=== PATIENT | male | born 1990 | race Caucasian/White ===

== ENCOUNTER 2024-11-10 12:03 | Emergency (ER) | payer OTHER, SELFPAY ==
[2024-11-10 12:11] VITALS: BP 115/80; PULSE 73; O2SAT 96
--- NOTE | 2024-11-10 12:11 | CT_ITS ---
FINAL REPORT TECHNIQUE: Axial images were obtained of the cervical spine by computed tomography. Coronal and sagittal reconstruction process performed. This study was performed with techniques to keep radiation doses as low as reasonably achievable (ALARA). Individualized dose reduction techniques using automated exposure control or adjustment of mA and/or kV according to the patient's size were employed. CLINICAL HISTORY: midline lower C spine pain and bilateral hand ting COMPARISON: None FINDINGS: CT CERVICAL SPINE: Cervical vertebrae show normal height. No acute bony abnormality is identified. There is mild disc space narrowing at the C4-5, C5-6, and C6-7 levels. Posterior osteophytes are noted at the C4-5 and C5-6 levels. There is moderate bilateral neural foraminal narrowing at the C4-5 level, with moderate to severe right C5-6 neuroforaminal narrowing. These findings are greater than would be expected for the patient's chronologic age. There is no malalignment. The facets are properly aligned. IMPRESSION: Degenerative change as described above, with severe right C5-6 neural foraminal narrowing. No acute bony abnormality is identified. Reviewed, Interpreted and Dictated by Panfilo Perez MD Transcribed by Annie Hunter Authenticated and [facility]
[2024-11-10 12:14] VITALS: BP 115/80; PULSE 68; RESP 14; TEMP 36.5; O2SAT 99; BMI 30.1
[2024-11-10 12:16] VITALS: BP 102/74; PULSE 68; O2SAT 99
--- NOTE | 2024-11-10 12:16 | ED_ITS ---
Discharge Plan Disposition Patient Disposition: Home, Self-Care Prescriptions Prescriptions: No Action No Known Home Medications Referrals Follow up/Referrals: Provider,Referral, MD [Primary Care Provider, Medical] - See instructions Clinical Impressions Clinical Impression: Neck pain, Hand tingling Stand Alone Forms Stand Alone Forms: Work/School Release Instructions Patient Instructions: DI for Neck Pain Print Language Print Language: Greenlandic Discharge ED Provider: Aleksandar Tracey General Adult HPI General Chief complaint: Neck Pain/Injury Stated complaint: neck pain, numbness in both hands Time Seen by Provider: 11/10/24 12:06 History of Present Illness HPI narrative: Please note that above description of symptoms, in this electronic medical record under categorization of recalled from ER triage doctor by RN are reflective of an initial nursing assessment, however, is not reflective of my full history and physical exam that was personally taken and clarified. Consequentially, this preceding description of symptoms, which may include the patient's categorized chief complaint in the EMR, do not reflect my personal clinical impression, and the ultimate description of history of present illness and patient stated complaints should be deferred to this section of the note. Unless stated otherwise or congruent with this section of the note, additional signs, symptoms, or incongruence should be interpreted as inaccurate with my clinical impression. Related Data Home Medications ?Medication ?Instructions ?Recorded ?Confirmed No Known Home Medications 01/14/19 08/0 07/04 Allergies Allergy/AdvReac Type Severity Reaction Status Date / Time From TOMATOES (FOOD/DRUG) Allergy Unknown BREAK OUT Uncoded 06/03/17 15:21 IN COLD SORES IN MOUTH [facility] Disclaimer: The information contained in this section may have been updated after the patient was seen, as this information can be updated by other users. Social History Smoking Status: Current every day smoker tobacco type: cigarettes packs per day: 1 alcohol intake: current alcohol intake frequency: 0-2 drinks per day substance use type: former substance user, crack/cocaine and methamphetamine current occupational status: other Travel in the last 8 weeks?: None current occupation: refuses to answer Other Medical History Have you received the Flu Vaccine for this season: No Have you received the Pneumonia Vaccine: No ROS Obtained: Yes All systems reviewed & no additional complaints except as documented Physical Exam General General appearance: alert Head Head exam: atraumatic and normocephalic Eye Eye exam: Present normal appearance, PERRL and EOMI Neck Neck exam: Present normal inspection, full ROM, trachea midline and tenderness (midline tenderness lower C spine) Respiratory Respiratory exam: Absent respiratory distress, wheezes, stridor, accessory muscle use or prolonged expiratory phase Cardiovascular Cardiovascular exam: Present other (Pulses equal symmetric in upper and lower extremities) Abdominal Exam Abdominal exam: Present soft; Absent distention, tenderness or pulsatile mass Extremities Exam Extremities exam: Absent edema Neurological Exam Neurological exam: Present alert, oriented X3 and CN II-XII intact; Absent motor sensory deficit Skin Skin exam: Present warm and dry; Absent diaphoresis or erythema Medical Decision Making Medical Records Medical records reviewed: Yes I reviewed the patient's medical records. Screening: Per USPSTF and CDC recommendations, given the prevalence of disease in our region, it is our hospital?s policy to screen for HIV and viral Hepatitis for all patients aged 18 and over and those with ongoing risk factors. Shaun Inquiry Pt receiving controlled substance: No Shaun was queried for this patient: No Vital Signs: 11/10/24 12:11 11/10/24 12:14 11/10/24 12:16 Temperature 97.7 F Temperature Source Oral Pulse Rate 73 68 Pulse Rate [Right Radial] 68 Respiratory Rate 14 Blood Pressure 115/80 102/74 L Blood Pressure [Right Arm] 115/80 Blood Pressure Mean [Right Arm] 91 Blood Pressure Source Blood Pressure Source [Right Arm] Automatic Cuff Blood Pressure Position 02 Sat by Pulse Oximetry 96 99 99 Oxygen Delivery Method Room Air Room Air Room Air 11/10/24 13:49 Temperature 98.0 F Temperature Source Oral Pulse Rate 61 Pulse Rate [Right Radial] Respiratory Rate 18 Blood Pressure 113/80 Blood Pressure [Right Arm] Blood Pressure Mean [Right Arm] Blood Pressure Source Automatic Cuff Blood Pressure Source [Right Arm] Blood Pressure Position Sitting 02 Sat by Pulse Oximetry Oxygen Delivery Method Room Air Orders (Tests/Meds): ORDERS Category Date Time Status CT cervical spine wo con Stat Cat Scan 11/10/24 12:11 Completed Medical Decision Narrative: 34 M with no relevant medical history presenting with numbness in both hands. It's intermittent, not currently present. Associated with decreased aquatics specialist strength intermittently, but no respiratory issues, lower extremity issues, bowel or bladder dysfunction, or other complaints. No history of neck injury in the past. History was obtained via conversation with patient. On arrival, patient hemodynamically stable, alert, [oriented x4, ][appropriate, ]GCS [15], moving all extremities spontaneously, pupils equal and reactive to light. Full physical exam performed and significant for neuro intact, well-appearing male. No midline spinal tenderness. unremarkable exam overall. Differential includes carpal tunnel, radiculopathy, myelopathy, less likely central cord syndrome, central compression, among others. Patient placed on continuous cardiac monitoring and continuous pulse ox with initial blood pressure 115/80, heart rate 73, saturation 96% ORA. Because asymptomatic, no treatments were initiated in the ED. CT of the cervical spine ordered. On independent interpretation, no central pathology identified. On reevaluation, patient resting comfortably and still asymptomatic. Given patient presentation, workup, history, this most likely represents rdiculopathy vs myelopathy. recommended he follow up with PCP, information provided. I discussed my clinical impression with patient and answered all questions. At this time, the evidence for any other entities in the differential is insufficient to warrant any further testing or ED observation. This was explained to the patient. The patient was advised that persistent or worsening symptoms require further evaluation. I confirmed the patient's understanding of this discussion. Snowboard Instructor disclaimer Much of this encounter note is an electronic leak operator paraffin plant spoken language to printed text. Electronic leak operator paraffin plant of the spoken language may permit errors. Although I have reviewed the note, some errors may still exist. Critical Care Critical Care Time Critical Care Time: No
--- NOTE | 2024-11-10 12:25 | PC.NURSE ---
pt gone to ct via wheelchair
[2024-11-10 13:49] VITALS: BP 113/80; PULSE 61; RESP 18; TEMP 36.7; O2SAT 99
== END 2024-11-10 13:56 | disposition home or self-care (01) ==
PROVIDERS: Emergency Provider Emergency Medicine
DX: M54.2 Cervicalgia (principal); R20.2 Paresthesia of skin; F17.210 Nicotine dependence, cigarettes, uncomplicated
CPT/HCPCS: 72125; 99284

== ENCOUNTER 2024-11-23 09:25 | Outpatient (CLI) | payer OTHER, SELFPAY ==
[2024-11-23 14:14] LABS: Basophils # 0.1 K/mm3 (0-0.2); Basophils % 0.8 % (0.1-2.0); Eosinophils # 0.4 Kmm3 (0.0-0.4); Eosinophils % 4.1 % (0.1-12.0); Hematocrit 47.8 % (42.0-52.0); Hemoglobin 15.7 g/dL (14.1-18.0); Immature Granulocytes # 0.01 10^3uL; Immature Granulocytes % 0.1 %; Lymphocytes # 2.4 K/mm3 (0.7-4.5); Lymphocytes % 27.7 % (10-50); Mean Corpuscular HGB Conc 32.8 g/dL (31.8-35.4); Mean Corpuscular Hemoglobin 30.6 pg (27.0-31.2); Mean Corpuscular Volume 93.2 fl (80-94); Mean Platelet Volume 12.4 fl (7.4-10.4); Monocytes # 0.7 K/mm3 (0.1-1.0); Neutrophils # 5.1 K/mm3 (1.8-7.8); Neutrophils % 59.3 % (37.0-80.0); Nucleated Red Blood Cells # 0 10^3/uL; Nucleated Red Blood Cells % 0 %; Platelet Count 214 K/mm3 (142-424); Red Blood Count 5.13 M/mm3 (4.60-6.20); Red Cell Distribution Width 13.5 % (11.5-17.5); Red Cell Distribution Width-SD 46.5 fL; White Blood Count 8.6 K/mm3 (4.8-10.8)
[2024-11-23 14:37] LABS: Albumin Level 4.4 g/dl (3.5-5.0); Chloride 102 mmol/L (98-107); Potassium 4.6 mmoL/L (3.5-5.1); Sodium 139 mmol/L (136-145)
[2024-11-23 14:40] LABS: Alanine Aminotransferase 27 U/L (12-78); Albumin/Globulin Ratio 1.5 (1.1-1.8); Alkaline Phosphatase 76 U/L (38-126); Anion Gap 11.6 mEq/L (5-15); Aspartate Amino Transferase 30 U/L (17-59); Bilirubin,Total 0.5 mg/dl (0.2-1.3); Blood Urea Nitrogen 11 mg/dl (9-20); Calcium 9.2 mg/dl (8.4-10.2); Carbon Dioxide 30 mmol/L (22.0-30.0); Estimated Glomerular Filt Rate 111 ml/min (>60); GFR (African American) 134 ML/MIN (>60); Globulin 2.9 g/dL (1.3-3.2); Glucose 99 mg/dl (74-100); Total Protein,Serum 7.3 g/dl (6.3-8.2)
[2024-11-23 15:16] LABS: HIV Combo NEGATIVE (Negative)
[2024-11-23 15:24] LABS: Hepatitis C Ab Qual. W/ RFX REACTIVE (Negative)
[2024-11-23 18:27] LABS: Hemoglobin A1C 5.5 % (4.0-6.0)
--- OUTSIDE RECORDS SUMMARY | 2024-11-24 11:18 | XMS_ITS | Clinical Summary ---
Author Organization [facility] Address [address] [address] Phone Care Team Providers Care Underwriting Sales Representative Name Role Phone Eduadra Lopez APRN Primary Care Physician + Conditions or Problems Problem Name Problem Code Onset Date Status Entry Date Provider Comment Standard Description Annotate Eye irritation 211807751 (SNOMED CT) 07/26 Active 07/26 Elda Caro APRN Eye symptom Body mass index (BMI) 27.0-27.9; adult Z68.27 (ICD-10-CM ) 03/03 Active 03/03 Elda Heshamdelli SENIOR BUYER PLANNER Body mass index [BMI] 27.0-27.9, adult Body mass index (BMI) 24.0-24.9; adult Z68.24 (ICD-10-CM ) 01/19 Correction 01/19 Elda Zaadinadelli SENIOR BUYER PLANNER Body mass index [BMI] 24.0-24.9, adult Infected wound 47557863 (SNOMED CT) 03/03 Inactive 03/03 Elda Zanardelli SENIOR BUYER PLANNER Local infection of wound Athletes foot 7209612 (SNOMED CT) 03/03 Inactive 03/03 Elda Zanardelli SENIOR BUYER PLANNER Tinea pedis Body mass index (BMI) 24.0-24.9; adult Z68.24 (ICD-10-CM ) 01/19 Removed 01/19 Eduarda Lopez APRN Body mass index [BMI] 24.0-24.9, adult Hepatitis C 67694690 (SNOMED CT) 01/19 Active 01/19 Eduarda Lopez APRN Viral hepatitis C Methampheta mine abuse 932753054 (SNOMED CT) 01/19 Active 01/19 Eduarda Lopez APRN Harmful pattern of use of methamphetamin e Tobacco User 516571480 (SNOMED CT) 01/19 Active 01/19 Eduarda Lopez APRN Tobacco user Medications Medication Instructions Start Date Stop Date Generic Name NDC Provider DEXAMETHASONE SODIUM PHOSPHATE 0.1 % SOLN Instill 1 drop into right eye three times a day for eye pain dexamethasone sodium phosphate 70765448081 Elda Heshamdelli SENIOR BUYER PLANNER AMOXICILLIN 500 MG TABS Take 1 tablet by mouth three times a day for 7 days amoxicillin 34397982592 Ayad Nguyễn DMD AMOXICILLIN 500 MG TABS Take 1 tablet by mouth three times a day amoxicillin 20632413427 Ayad Nguyễn DMD LOTRIMIN AF 2 % AERO Use as per directions on bottle miconazole nitrate 98166807143 Elda Dahldelli SENIOR BUYER PLANNER BACITRACIN 500 UNIT/GM OINT 1 a small amount to affected area twice a day bacitracin 59642228185 Elda Mendietanardelli SENIOR BUYER PLANNER CEPHALEXIN 250 MG CAPS Take 1 capsule by mouth twice a day cephalexin 77284098865 Elda Mendietanardelli SENIOR BUYER PLANNER AMOXICILLIN 500 MG TABS Take 1 tablet by mouth three times a day for 7 days amoxicillin 52392379990 Ayad Nguyễn DMD Medications Administered No information available. Allergies, Adverse Reactions, Alerts Observed no known allergies at Results No information available. Plan of Care Type Date Detail Referral Ophthamology Opt ometry Referral General Patient education Patient Educat ion Given Procedures Code Procedure Name Date Entry Date CPT-3074F Most recent systolic blood pressure <130 mm Hg CPT-3078F Most recent diastoli c blood pressure <80 mm Hg CPT-1159F Medication list docu mented in medical record [id number] Medication Reconciliation [id number] Current every day smoker 20 10/08/09 4004F Patient screened for tobacco use and received tobacco cessation intervention [id number] Smoking cessation education [id number] Giving encouragement to exercise CPT-3074F Most recent systolic blood pressure <130 mm Hg CPT-3078F Most recent diastoli c blood pressure <80 mm Hg [id number] Medication Reconciliation [id number] Medication Reconciliation 4004F Patient screened for tobacco use and received tobacco cessation intervention [id number] Current every day smoker 20 06/02/06 [id number] Smoking cessation education CPT-3074F Most recent systolic blood pressure <130 mm Hg CPT-3078F Most recent diastoli c blood pressure <80 mm Hg CPT-1159F Medication list docu mented in medical record CPT-1160F Review of all medica tions by a prescribing practitioner Vital Signs Date Name Value Unit Description BMI (Body Mass Index) 29.97 kg/m2 Bod y Mass Index (Ratio) Body Temperature 98 [degF] temperat ure E&M Body Temperature 36.67 Abbie temperat ure in centigrade E&M BP Diastolic 65 mm[Hg] blood pressu re, diastolic BP Systolic 113 mm[Hg] blood pressur e, systolic BSA (Body Surface Area) 1.98 b blair surface area Heart Rate 69 /min pulse rate Height 66 [in_us] height E&M Height 167.64 cm height in cent imeters E&M Weight Measured 84.09 kg weight in kilograms E&M Weight Measured 185 [lb_av] weight E& M Weight Measured 185 [lb_av] weight E& M Immunizations No information available. Advance Directives No information available.
== END 2024-11-23 23:59 | disposition home or self-care (01) ==
LOC: LAB.DROPOF 11-24 11:16
PROVIDERS: PCP Internal Medicine; Visit Provider Internal Medicine
DX: Z00.00 Encounter for general adult medical examination without abnormal findings (principal); Z11.59 Encounter for screening for other viral diseases; Z11.4 Encounter for screening for human immunodeficiency virus [HIV]; Z13.1 Encounter for screening for diabetes mellitus
CPT/HCPCS: 80053; 83036; 85025; 86803; 87389; 87522

== ENCOUNTER 2024-12-01 08:15 | Outpatient (CLI) | payer OTHER, SELFPAY ==
--- NOTE | 2024-12-01 08:15 | MR_ITS ---
FINAL REPORT CLINICAL HISTORY: Severe cervical degeneration. BILATERAL HAND NUMBNESS WORSE IN RIGHT HAND. 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 NECK PAIN FINDINGS: Multi planar MR imaging was obtained of the cervical spine. There is abnormal decreased signal throughout the cervical discs. The vertebrae are of normal height. There is no malalignment. The cervical cord demonstrates normal signal and configuration. C2-C3: There is no evidence of significant disc bulge or protrusion. There is no significant facet hypertrophy. C3-C4: There is no evidence of significant disc bulge or protrusion. There is no significant facet hypertrophy. C4-C5: Moderate diffuse disc bulge and endplate hypertrophy. Moderate spinal and moderate to high-grade bilateral neuroforaminal narrowing. C5-C6: Moderate diffuse disc bulge and endplate hypertrophy. Moderate to high-grade bilateral neuroforaminal narrowing. C6-C7: Moderate diffuse disc bulge and endplate hypertrophy. Moderate bilateral neuroforaminal narrowing. C7-T1: There is no evidence of significant disc bulge or protrusion. There is no significant facet hypertrophy. IMPRESSION: Multilevel degenerative disc disease with moderate and neuroforaminal compromise, most evident at C4-5. Reviewed, Interpreted and Dictated by Panfilo Perez MD Transcribed by Angela Connelly Authenticated and [facility]
--- OUTSIDE RECORDS SUMMARY | 2024-12-01 08:21 | XMS_ITS ---
Author Organization [employer] [facility] Address [address] [address] Phone Care Team Providers Care Data Modeling Architect Name Role Phone Eduarda Lopez APRN Primary Care Physician + Conditions or Problems Problem Name Problem Code Onset Date Status Entry Date Provider Comment Standard Description Annotate Eye irritation 963971823 (SNOMED CT) 07/26 Active 07/26 Elda Caro APRN Eye symptom Body mass index (BMI) 27.0-27.9; adult Z68.27 (ICD-10-CM ) 03/03 Active 03/03 Elda Dahldelli CONSERVATION COORDINATOR Body mass index [BMI] 27.0-27.9, adult Body mass index (BMI) 24.0-24.9; adult Z68.24 (ICD-10-CM ) 01/19 Correction 01/19 Elda Heshamdelli CONSERVATION COORDINATOR Body mass index [BMI] 24.0-24.9, adult Infected wound 97456596 (SNOMED CT) 03/03 Inactive 03/03 Elda Zanardelli CONSERVATION COORDINATOR Local infection of wound Athletes foot 6402500 (SNOMED CT) 03/03 Inactive 03/03 Elda Zanardelli CONSERVATION COORDINATOR Tinea pedis Body mass index (BMI) 24.0-24.9; adult Z68.24 (ICD-10-CM ) 01/19 Removed 01/19 Eduarda Lopez APRN Body mass index [BMI] 24.0-24.9, adult Hepatitis C 15822820 (SNOMED CT) 01/19 Active 01/19 Eduarda Lopez APRN Viral hepatitis C Methampheta mine abuse 884260557 (SNOMED CT) 01/19 Active 01/19 Eduarda Lopez APRN Harmful pattern of use of methamphetamin e Tobacco User 919639385 (SNOMED CT) 01/19 Active 01/19 Eduarda Lopez APRN Tobacco user Medications Medication Instructions Start Date Stop Date Generic Name NDC Provider DEXAMETHASONE SODIUM PHOSPHATE 0.1 % SOLN Instill 1 drop into right eye three times a day for eye pain dexamethasone sodium phosphate 44251961665 Elda Heshamdelli CONSERVATION COORDINATOR AMOXICILLIN 500 MG TABS Take 1 tablet by mouth three times a day for 7 days amoxicillin 45883111532 Ayad Nguyễn DMD AMOXICILLIN 500 MG TABS Take 1 tablet by mouth three times a day amoxicillin 76698517540 Ayad Nguyễn DMD LOTRIMIN AF 2 % AERO Use as per directions on bottle miconazole nitrate 42667893667 Elda Dahldelli CONSERVATION COORDINATOR BACITRACIN 500 UNIT/GM OINT 1 a small amount to affected area twice a day bacitracin 46246121672 Elda Mendietanardelli CONSERVATION COORDINATOR CEPHALEXIN 250 MG CAPS Take 1 capsule by mouth twice a day cephalexin 51561044179 Elda Mendietanardelli CONSERVATION COORDINATOR AMOXICILLIN 500 MG TABS Take 1 tablet by mouth three times a day for 7 days amoxicillin 27812605151 Ayad Nguyễn DMD Medications Administered No information [...] Medication list docu mented in medical record [id number] Medication Reconciliation [id number] Current every day smoker 20 10/08/09 4004F Patient screened for tobacco use and received tobacco cessation intervention [id number] Smoking cessation education [id number] Giving encouragement to exercise CPT-3074F Most recent systolic blood pressure <130 mm Hg CPT-3078F Most recent diastoli c blood pressure <80 mm Hg [id number] Medication Reconciliation [id number] Medication Reconciliation 4004F Patient screened for tobacco use and received tobacco cessation intervention [id number] Current every day smoker 20 06/02/06 [id number] Smoking cessation education CPT-3074F Most recent systolic [...]
== END 2024-12-01 23:59 | disposition home or self-care (01) ==
LOC: RAD 08:16
PROVIDERS: PCP Internal Medicine; Visit Provider Internal Medicine
DX: M50.321 Other cervical disc degeneration at C4-C5 level (principal); M50.322 Other cervical disc degeneration at C5-C6 level; M50.323 Other cervical disc degeneration at C6-C7 level; M99.71 Connective tissue and disc stenosis of intervertebral foramina of cervical region; M47.812 Spondylosis without myelopathy or radiculopathy, cervical region
CPT/HCPCS: 72141

== ENCOUNTER 2024-12-07 12:26 | Outpatient (RCR) | payer OTHER, SELFPAY ==
--- NOTE | 2024-12-07 13:39 | HMH.PTOPEV ---
PT Outpatient Evaluation Rehab PT Outpatient Evaluation Start: 12/07/24 12:51 Freq: Status: Active Protocol: Document 12/07/24 12:55 SARAI (Rec: 12/07/24 13:38 SARAI [id number]) E-signed By Aj Blanton, PT Outpatient Therapy Subjective History Subjective History Pt is a 34 yom who is referred to [facility] outpatient PT with neck pain with bilateral numbness and tingling, history of dropping things. He reports that he had unilateral numbness and tingling for several years but it has recently transitioned to his right hand. MRI Results: Multilevel degenerative disc disease with moderate and neuroforaminal compromise, most evident at C4-5. New diagnosis of No cancer in past 12 months? Chief Complaint Pain,Paresthesia,Decreased Garment Presser Strength Symptom Type Numbness,Tingling Neck Disability Index Neck Disability Index Section 1: Pain The pain is very mild at moment Intensity Section 2: Personal I can look after myself normally without causing extra Care (washing, pain dressing, etc.) Section 3: Lifting Pain prevents me lifting heavy weights off the floor, but I can manage Section 4: Reading I can read as much as I want to with no pain in my neck Section 5: Headaches I have slight headaches, which come infrequently Section 6: I have a fair degree of difficulty in concentrating Concentration when I want to Section 7: Work I can do most of my usual work, but no more Section 8: Driving I can drive my car without any neck pain Section 9: Sleeping I have no trouble sleeping Section 10: I am able to engage in most, but not all of my usual Recreation recreation NDI Score 10 Outpatient Therapy Assessment Prognosis Rehab Potential Innapropriate for Skilled Therapy Comment Pt referred back to PCP to discuss MRI results. Based upon pt's symptoms, pt would potentially benefit from neurosurgeon consult. Symptoms are consistent with that of Cervical Myelopathy. If cleared by PCP, pt instructed to get another PT order and return for new evaluation. Clinical Impression Consistent with Yes Diagnosis Consistent with Cervical Myelopathy Outpatient Therapy Plan of Care Frequency Times per week 1 Duration Number of Weeks 1 Addendums This patient is a No candidate for social or vocational rehab ? Patient/Guardian Yes verbally acknowledges understanding of treatment program and consents to further treatment? Patient/Guardian Yes verbally acknowledges understanding of diagnosis, prognosis and goals for treatment? Eval Complexity PT Charges 48372 - High Complexity Shoulder/Elbow Eval Shoulder Objective Measurements Elbow Objective Measurements PHYSICIAN CERTIFICATION: I certify the specified therapy services for Baltazar Barrett are required, authorized, and reviewed every 30 days.
[2024-12-07 14:31] LABS: Basophils # 0.1 K/mm3 (0-0.2); Basophils % 0.4 % (0.1-2.0); Eosinophils # 0.2 Kmm3 (0.0-0.4); Eosinophils % 1.1 % (0.1-12.0); Hematocrit 41.3 % (42.0-52.0); Hemoglobin 13.3 g/dL (14.1-18.0); Immature Granulocytes # 0.06 10^3uL; Immature Granulocytes % 0.4 %; Lymphocytes # 2.3 K/mm3 (0.7-4.5); Lymphocytes % 16.6 % (10-50); Mean Corpuscular HGB Conc 32.2 g/dL (31.8-35.4); Mean Corpuscular Hemoglobin 29.6 pg (27.0-31.2); Mean Corpuscular Volume 91.8 fl (80-94); Mean Platelet Volume 12.1 fl (7.4-10.4); Monocytes # 1.1 K/mm3 (0.1-1.0); Monocytes % 7.8 % (1.7-9.3); Neutrophils # 10.3 K/mm3 (1.8-7.8); Neutrophils % 73.7 % (37.0-80.0); Nucleated Red Blood Cells # 0 10^3/uL; Nucleated Red Blood Cells % 0 %; Platelet Count 197 K/mm3 (142-424); Red Cell Distribution Width 13.3 % (11.5-17.5); Red Cell Distribution Width-SD 45.1 fL
[2024-12-07 14:35] LABS: INR 1.02 (0.9-1.1); Prothrombin Time 11.3 seconds (10.1-12.5)
[2024-12-07 14:53] LABS: Alanine Aminotransferase 25 U/L (12-78); Albumin Level 4.4 g/dl (3.5-5.0); Albumin/Globulin Ratio 1.5 (1.1-1.8); Alkaline Phosphatase 114 U/L (38-126); Aspartate Amino Transferase 25 U/L (17-59); Bilirubin,Total 0.4 mg/dl (0.2-1.3); Blood Urea Nitrogen 16 mg/dl (9-20); Calcium 9.5 mg/dl (8.4-10.2); Carbon Dioxide 28 mmol/L (22.0-30.0); Chloride 103 mmol/L (98-107); Estimated Glomerular Filt Rate 129 ml/min (>60); GFR (African American) 156 ML/MIN (>60); Glucose 132 mg/dl (74-100); Sodium 136 mmol/L (136-145); Total Protein,Serum 7.4 g/dl (6.3-8.2)
[2024-12-08 05:10] LABS: Hep A Ab, IgM Negative (Negative); Hep A Ab, Total Positive (Negative); Hep B Core Ab, Total Negative (Negative); Hep B Surface Ab, Qual Non Reactive (.); Hepatitis B Surface Antigen Negative (Negative)
[2024-12-09 23:09] LABS: Hepatitis C Genotype 1a (.)
== END 2024-12-07 23:59 | disposition home or self-care (01) ==
LOC: PT 12:26
PROVIDERS: PCP Internal Medicine; Visit Provider Internal Medicine
DX: G54.2 Cervical root disorders, not elsewhere classified (principal); B19.20 Unspecified viral hepatitis C without hepatic coma
CPT/HCPCS: 80053; 85025; 85610; 86704; 86706; 86708; 87340; 87902; 97163